=== PATIENT | male | born 1975 | race Caucasian/White ===

== ENCOUNTER 2019-09-20 10:55 | Outpatient (CLI) | payer BC ==
[~2019-09-20 10:55] MED LIST: UNOBMED
--- NOTE | 2019-09-20 12:08 | Diagnostic Imaging Report ---
Indication: Chest pain Technique: 2 views of the chest Comparison: 05/02/2013 single view chest Findings: Lungs and pleural spaces are clear. Heart size is normal. There is minimal atelectasis at the left lateral lung base Impression: No acute process
== END 2019-09-20 12:55 | disposition home or self-care (01) ==
LOC: RAD 10:55
DX: R07.89 Other chest pain (principal); R06.02 Shortness of breath
CPT/HCPCS: 71046